=== PATIENT | male | born 1965 | race Caucasian/White ===

== ENCOUNTER 2019-04-06 17:21 | Inpatient (IN) | payer BC ==
[~2019-04-06] VITALS: Ht 182.9 cm; Wt 117.4 kg
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
--- NOTE | 2019-04-06 17:32 | NUR ---
RECEIVED NTG AND HEPARIN AT [facility]. REPORT TO [facility]
[2019-04-06] MEDS ORDERED: SODIUM CHLORIDE FLUSH 10ML SYR IVF ONE (18:30)
--- NOTE | 2019-04-06 18:33 | NUR ---
Resting in [facility]. No needs.
[2019-04-06 18:48] LABS: ANION GAP 6 mmol/L (5-15); CALCIUM 9.1 mg/dL (8.5-10.1); CHLORIDE 107 mmol/L (98-107)
[2019-04-06 18:57] LABS: BASOPHILS # (AUTO) 0.04 x10^3/uL (0-0.1); BASOPHILS % (AUTO) 1 % (0-1); EOSINOPHILS # (AUTO) 0.06 x10^3/uL (0-0.4); EOSINOPHILS % (AUTO) 1 % (1-7); LYMPHOCYTES # (AUTO) 1.41 x10^3/uL (1-3.4); LYMPHOCYTES % (AUTO) 17 % (22-44); MD NO; MEAN CORPUSCULAR HEMOGLOBIN 32.4 pg (27.5-34.5); MEAN CORPUSCULAR VOLUME 98.3 fL (81-97); MEAN PLATELET VOLUME 8.8 fL (7.4-10.4); MONOCYTES # (AUTO) 0.61 x10^3/uL (0.2-0.8); MONOCYTES % (AUTO) 7 % (2-9); NEUTROPHILS # (AUTO) 6.28 x10^3/uL (1.8-6.8); NEUTROPHILS % (AUTO) 75 % (42-75); PLATELET COUNT 237 x10^3/uL (130-400); RED BLOOD COUNT 5.53 x10^6/uL (4.38-5.82); RED CELL DISTRIBUTION WIDTH 15.2 % (9.4-14.8)
[2019-04-06] MEDS ORDERED: SODIUM CHLORIDE FLUSH 10ML SYR IVF PRN (19:30)
[2019-04-06] MEDS ORDERED: HEPARIN 5,000 UNITS/ML, 1ML IV ONE (19:30)
[2019-04-06] MEDS ORDERED: HEPARIN 25,000 UNITS/500ML PMX 500 ML IV PRN (19:30)
[2019-04-06] MEDS ORDERED: HEPARIN 25,000 UNITS/500ML PMX 500 ML ONE (19:32)
--- NOTE | 2019-04-06 19:40 | NUR ---
Heparin bolus held. Given at [facility] prior to transfer according to transfer paperwork.
--- NOTE | 2019-04-06 19:52 | NUR ---
Heparin hung. VSS.
[2019-04-06] MEDS ORDERED: LOSA100T14 PO (19:57)
[2019-04-06] MEDS ORDERED: ENALAPRILAT 1.25 MG/ML, 2ML IVPush PRN (20:30)
[2019-04-06] MEDS ORDERED: morphine SULFATE 10 MG/ML, 1ML IV PRN (20:30)
[2019-04-06] MEDS ORDERED: ONDANSETRON 2MG/ML, 2ML IVPush PRN (20:30)
[2019-04-06] MEDS ORDERED: ACETAMINOPHEN 325 MG TABLET PO PRN (20:30)
[2019-04-06 20:48] VITALS: BP 171/115
[2019-04-06 21:05] LABS: HEMOGLOBIN A1C 5.1 % (4.2-6.3)
[2019-04-06 22:02] VITALS: BP 164/103
[2019-04-06] MEDS: ATORVASTATIN 80 MG TABLET PO SCH (22:03)
[2019-04-06] MEDS: POTASSIUM CHLORIDE 20 MEQ, MAGNESIUM SULFATE 2 GM, THIAMINE 200 MG, MVI ADULT 10 ML, FO... IV SCH (22:03)
[2019-04-06] MEDS: NITROGLYCERIN OINT 2%, 1GM TP SCH (22:03)
[2019-04-07] MEDS ORDERED: FLU VACC QS2019-20 36MOS UP/PF 0.5 ML IM-VACC ONE (01:30)
[2019-04-07 01:56] VITALS: BP 125/78
[2019-04-07 02:16] LABS: BASOPHILS # (AUTO) 0.04 x10^3/uL (0-0.1); BASOPHILS % (AUTO) 0 % (0-1); EOSINOPHILS % (AUTO) 1 % (1-7); LYMPHOCYTES # (AUTO) 1.42 x10^3/uL (1-3.4); LYMPHOCYTES % (AUTO) 15 % (22-44); MD NO; MEAN CORPUSCULAR HEMOGLOBIN 32.3 pg (27.5-34.5); MEAN CORPUSCULAR HGB CONC 32.8 g/dL (33.2-36.2); MEAN CORPUSCULAR VOLUME 98.4 fL (81-97); MEAN PLATELET VOLUME 8.5 fL (7.4-10.4); MONOCYTES # (AUTO) 0.84 x10^3/uL (0.2-0.8); MONOCYTES % (AUTO) 9 % (2-9); NEUTROPHILS % (AUTO) 74 % (42-75); PLATELET COUNT 239 x10^3/uL (130-400); RED BLOOD COUNT 5.34 x10^6/uL (4.38-5.82); RED CELL DISTRIBUTION WIDTH 14.6 % (9.4-14.8)
[2019-04-07 02:24] LABS: ANION GAP 5 mmol/L (5-15); CALCIUM 8.6 mg/dL (8.5-10.1); CHLORIDE 109 mmol/L (98-107); CHOLESTEROL, TOTAL 176 mg/dL (140-239); CREATININE 1.12 mg/dL (0.7-1.3)
[2019-04-07 02:28] LABS: CHOL/HDL RATIO 4.3; HDL CHOL % 23 % (26-37); HDL CHOLESTEROL (DIRECT) 41 mg/dL (40-60); LDL CHOLESTEROL,CALCULATED 103 mg/dL (54-169); LDL/HDL RATIO 2.5 (0.5-3.0); TRIGLYCERIDES 162 mg/dL (50-200); VLDL CHOLESTEROL 32 mg/dL (0-25)
[2019-04-07] MEDS: HEPARIN 5,000 UNITS/ML, 1ML IV PRN ×2 (02:33→09:37)
[2019-04-07 05:58] VITALS: BP 147/99
[2019-04-07] MEDS: ASPIRIN 325 MG TABLET EC PO SCH (05:59)
[2019-04-07] MEDS: NITROGLYCERIN OINT 2%, 1GM TP SCH ×3 (05:59→14:30)
[2019-04-07] MEDS ORDERED: SODIUM CHLORIDE 0.9% 1,000 ML IV SCH ×2 (06:00→13:23)
[2019-04-07 06:58] VITALS: BP 152/96
[2019-04-07] MEDS: METOPROLOL SUCCINATE 50 MG TAB.ER.24H PO SCH (08:33)
[2019-04-07] MEDS: LOSARTAN 50MG TABLET PO SCH (08:33)
[2019-04-07 08:41] LABS: HEMOGLOBIN A1C 5.3 % (4.2-6.3)
[2019-04-07] MEDS: POTASSIUM CHLORIDE 20 MEQ, MAGNESIUM SULFATE 2 GM, THIAMINE 200 MG, MVI ADULT 10 ML, FO... IV SCH (09:15)
[2019-04-07] MEDS ORDERED: MIDAZOLAM 1 MG/ML, 5ML ONE ×2 (12:11→13:07)
[2019-04-07] MEDS ORDERED: FENTANYL PF 100 MCG/2ML ONE ×2 (12:12→13:07)
[2019-04-07] MEDS ORDERED: BIVALIRUDIN 250 MG ONE ×2 (12:12→13:25)
[2019-04-07] MEDS ORDERED: LIDOCAINE-MPF 1%, 5ML ONE (12:12)
[2019-04-07] MEDS ORDERED: HEPARIN 1,000 UNITS/ML, 10ML ONE (12:12)
[2019-04-07] MEDS ORDERED: VERAPAMIL 2.5 MG/ML, 2ML ONE (12:12)
[2019-04-07] MEDS ORDERED: PRASUGREL 10 MG TABLET ONE (12:13)
[2019-04-07] MEDS ORDERED: NITROGLYCERIN 5 MG/ML, 10ML ONE (12:13)
[2019-04-07] MEDS ORDERED: LIDOCAINE 2%, 20ML ONE (13:06)
[2019-04-07 13:50] VITALS: BP 104/72
[2019-04-07] MEDS: BIVALIRUDIN 250 MG in SODIUM CHLORIDE 0.9% 50 ML IV SCH ×2 (15:09→18:23)
[2019-04-07 20:30] VITALS: BP 131/67
[2019-04-07] MEDS: ATORVASTATIN 80 MG TABLET PO SCH (20:38)
[2019-04-08 00:58] VITALS: BP 119/68
[2019-04-08 04:46] LABS: BASOPHILS # (AUTO) 0.04 x10^3/uL (0-0.1); BASOPHILS % (AUTO) 0 % (0-1); EOSINOPHILS # (AUTO) 0.16 x10^3/uL (0-0.4); EOSINOPHILS % (AUTO) 2 % (1-7); LYMPHOCYTES # (AUTO) 1.24 x10^3/uL (1-3.4); LYMPHOCYTES % (AUTO) 12 % (22-44); MD NO; MEAN CORPUSCULAR HEMOGLOBIN 32.5 pg (27.5-34.5); MEAN CORPUSCULAR HGB CONC 32.9 g/dL (33.2-36.2); MEAN CORPUSCULAR VOLUME 98.8 fL (81-97); MEAN PLATELET VOLUME 8.6 fL (7.4-10.4); MONOCYTES # (AUTO) 0.81 x10^3/uL (0.2-0.8); MONOCYTES % (AUTO) 8 % (2-9); NEUTROPHILS # (AUTO) 8.26 x10^3/uL (1.8-6.8); NEUTROPHILS % (AUTO) 79 % (42-75); PLATELET COUNT 225 x10^3/uL (130-400); RED BLOOD COUNT 5.08 x10^6/uL (4.38-5.82); RED CELL DISTRIBUTION WIDTH 15.1 % (9.4-14.8)
[2019-04-08 04:55] LABS: ANION GAP 3 mmol/L (5-15); CALCIUM 7.9 mg/dL (8.5-10.1); CHLORIDE 110 mmol/L (98-107); CREATININE 1.19 mg/dL (0.7-1.3)
[2019-04-08 05:12] VITALS: BP 121/68
[2019-04-08] MEDS: METOPROLOL SUCCINATE 50 MG TAB.ER.24H PO SCH (05:15)
[2019-04-08] MEDS: ASPIRIN 325 MG TABLET EC PO SCH (05:16)
[2019-04-08 08:03] VITALS: BP 121/82
[2019-04-08] MEDS ORDERED: POTASSIUM CHLORIDE 20 MEQ, MAGNESIUM SULFATE 2 GM, THIAMINE 200 MG, MVI ADULT 10 ML, FO... IV SCH (09:00)
[2019-04-08] MEDS ORDERED: PRASUGREL 10 MG TABLET PO SCH (09:00)
[2019-04-08] MEDS: LOSARTAN 50MG TABLET PO SCH (09:38)
[2019-04-08] MEDS ORDERED: SPIRONOLACTONE 25 MG TABLET PO SCH (11:30)
[2019-04-08] MEDS ORDERED: METO-93 PO (12:35)
[2019-04-08] MEDS ORDERED: PRAS10TA4 PO (12:35)
[2019-04-08] MEDS ORDERED: ASPI-650 PO (12:35)
[2019-04-08] MEDS ORDERED: SPIR25TA PO (12:35)
[2019-04-08] MEDS ORDERED: ATOR-2 PO (12:35)
[2019-04-08 12:38] VITALS: BP 134/88
== END 2019-04-08 15:00 | disposition home or self-care (01) | DRG 249 ==
LOC: ED 19:00 → EDIP 19:08 → 5SO 20:40 → DCLOUNGE 04-08 14:48
PROVIDERS: ADMIT Family Medicine; ATTEND Family Medicine
PROC: 02703DZ Dilation of Coronary Artery, One Artery with Intraluminal Device, Percutaneous Approach (ICD-10-PCS; principal; 2019-04-07)
PROC: 4A023N7 Measurement of Cardiac Sampling and Pressure, Left Heart, Percutaneous Approach (ICD-10-PCS; 2019-04-07)
PROC: B211YZZ Fluoroscopy of Multiple Coronary Arteries using Other Contrast (ICD-10-PCS; 2019-04-07)
PROC: B215YZZ Fluoroscopy of Left Heart using Other Contrast (ICD-10-PCS; 2019-04-07)
DX: I21.4 Non-ST elevation (NSTEMI) myocardial infarction (principal); I50.20 Unspecified systolic (congestive) heart failure; E66.9 Obesity, unspecified; Z68.35 Body mass index [BMI] 35.0-35.9, adult; E78.5 Hyperlipidemia, unspecified; F10.10 Alcohol abuse, uncomplicated; Y90.9 Presence of alcohol in blood, level not specified; F17.200 Nicotine dependence, unspecified, uncomplicated; I11.0 Hypertensive heart disease with heart failure; I25.5 Ischemic cardiomyopathy; Z82.49 Family history of ischemic heart disease and other diseases of the circulatory system; I20.0 Unstable angina
CPT/HCPCS: 36415; 92928; 93458; 96365; 99285; J7042; 80048; 80061; 82040; 83036; 84443; 84484; 85025; 85520; 90686; 93005; 93306; 99156; 99157; C1760; C1769; C1876; C1894; G0378; J0583; J1644; J2250; J3010; J3411; J3475; J3480; C1887; J2270; J7030; Q9967